=== PATIENT | female | born 1990 | race Caucasian/White ===

== ENCOUNTER 2022-04-08 10:44 | Emergency (ER) | payer MEDICAID, SELFPAY ==
[2022-04-08 10:55] VITALS: BP 118/101; PULSE 114; RESP 16; TEMP 36.9; O2SAT 97; BMI 29.6
--- NOTE | 2022-04-08 11:06 | PC.NURSE ---
BLOOD AND URINE SENT TO LAB
--- NOTE | 2022-04-08 11:09 | CT_ITS ---
PROCEDURE INFORMATION: Exam: CT Abdomen And Pelvis Without Contrast Exam date and time: 04/08/2022 11:25 AM Age: 31 years old Clinical indication: Abdominal pain; Flank; Right; Additional info: R flank pain TECHNIQUE: Imaging protocol: Computed tomography of the abdomen and pelvis without contrast. Radiation optimization: All CT scans at this facility use at least one of these dose optimization techniques: automated exposure control; mA and/or kV adjustment per patient size (includes targeted exams where dose is matched to clinical indication); or iterative reconstruction. COMPARISON: No relevant prior studies available. FINDINGS: Lungs: Calcified granuloma in the left lower lobe. Liver: No mass. Gallbladder and bile ducts: No calcified stones. No ductal dilation. Pancreas: Normal. No ductal dilation. Spleen: Punctate calcified splenic granulomata. Adrenal glands: No mass. Kidneys and ureters: No radiopaque renal calculi. No hydronephrosis. Stomach and bowel: No obstruction. Appendix: No evidence of appendicitis. Intraperitoneal space: No free air. No significant fluid collection. Vasculature: No abdominal aortic aneurysm. Lymph nodes: No enlarged lymph nodes. Urinary bladder: Unremarkable as visualized. Reproductive: IUD. Bones/joints: No acute fracture. Soft tissues: Unremarkable. IMPRESSION: No evidence of an acute intra-abdominal process.
--- NOTE | 2022-04-08 11:11 | HMH.EDGENADL ---
Discharge Plan Disposition Patient Disposition: Home, Self-Care Condition: Good Prescriptions Prescriptions: New ondansetron 4 mg tablet,disintegrating 4 mg PO Q8H PRN (Reason: nausea and vomiting) Qty: 10 0RF Referrals Follow up/Referrals: Nadine Villeda [Primary Care Provider] - See instructions Activity Restrictions/Add. Instructions Additional Instructions/Restrictions: Collect a diarrhea sample using the provided supplies and return it along with the order form to ER registration at [facility] for testing. Obtain the results of this test from your primary care provider the next day. Additional instructions for VOMITING/DIARRHEA: See your physician as soon as possible for further evaluation. Drink plenty of fluids. Return immediately if severe abdominal pain, uncontrollable vomiting, shortness of breath, fever, bloody diarrhea, vomiting of blood or abdominal distention. Urine culture has been performed, results generally take 2 to 3 days. Follow-up the results of this test with your primary care provider within 2 to 3 days. Clinical Impressions Clinical Impression: Gastroenteritis, Acute right flank pain, Rash Instructions Patient Instructions: DI for Viral Gastroenteritis -- Adult, DI for Diarrhea and Traveler's Diarrhea -- Adult, DI for Nausea -- Adult, DI for Flank Pain Discharge ED Provider: Sabas Drake General Adult HPI General Chief complaint: Nausea/Vomiting/Diarrhea Stated complaint: dizzy, vomiting, pain in Rt side Time Seen by Provider: 04/08/22 11:04 Mode of Arrival: Ambulatory Source of Information: Patient Limitations: No Limitations Description of Symptoms (Recalled from ER Triage Doc. by RN): Pt c/o N/V/D and rt flank pain that woke her up out of sleep this AM. Reports that the pain is constant, but will intermittently have a sharp shooting pain. Pt also c/o chills and an ongoing rash that she is currently being treated for. Pt afebrile upon arrival to ED History of Present Illness HPI narrative: States that she was awakened out of her sleep this morning by nausea, vomiting, diarrhea, and right flank pain. Right flank pain is spasmodic. She has had about 10 episodes of vomiting and profuse watery diarrhea without blood. No fever. No urinary symptoms. She states she has been treated for a rash on her hands and face for the past couple of weeks by her primary care provider, Nadine Villeda. She has been on 2 courses of prednisone and just recently started fluconazole as well. 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 Related Data Previous Rx's Medication Instructions Recorded ondansetron 4 mg disintegrating 4 mg PO Q8H PRN nausea and 04/08/22 tablet vomiting #10 tabs Allergies Allergy/AdvReac Type Severity Reaction Status Date / Time No Known Allergies Allergy Verified 04/08/22 11:17 [facility] Medical History (Updated 04/08/22 @ 12:18 by Sabas Drake MD) Encounter for insertion of mirena IUD Social History Smoking Status: Never smoker ROS Obtained: Yes Systems reviewed as appropriate & no additional complaints except as documented Constitutional Constitutional: Denies fever(s), Denies headache(s) and Denies weakness ENT Ears, Nose, Mouth, and Throat: Reports dry mouth, Denies headache(s), Denies nasal discharge and Denies sore throat Cardiovascular Cardiovascular: Denies chest pain Respiratory Respiratory: Denies shortness of breath and Denies cough Gastrointestinal Gastrointestingal: Reports abdominal pain, diarrhea and vomiting; Denies constipation or hematochezia Genitourinary Female Genitourinary: Denies difficulty voiding, Denies dysuria and Reports flank pain Musculoskeletal Musculoskeletal: Denies numbness Neurologic Neurologic: Denies headache(s), Denies numbness and Denies weakness Physical Exam General General appearance: alert and in no apparent distress Head Head exam: atraumatic and normocephalic Eye Eye exam: Present no
[2022-04-08 11:17] LABS: Microscopic, Urine URINE MICROSCOPIC (MICROSCOPIC)
[2022-04-08 11:18] LABS: Appearance,Urine SL CLOUDY (Clear); Bilirubin,Urine Negative (Negative); Blood, Urine TRACE-I (Negative); Color,Urine DK YELLOW (Yellow); Glucose,Urine (UA) Negative (Negative); Ketones,Urine TRACE (Negative); Leukocyte Esterase,Urine 1+ (Negative); Nitrate,Urine Negative (Negative); Protein,Urine TRACE (Negative); Specific Gravity, Urine 1.015 (1.005-1.030)
[2022-04-08 11:21] LABS: Urine Pregnancy, HCG Qual. Negative (Negative)
--- NOTE | 2022-04-08 11:28 | PC.NURSE ---
PT GOING FOR CT
[2022-04-08 11:33] LABS: Chloride 105 mmol/L (98-107); Potassium 3.9 mmoL/L (3.5-5.1); Sodium 141 mmol/L (136-145)
[2022-04-08 11:35] LABS: Alanine Aminotransferase 18 U/L (12-78); Alkaline Phosphatase 55 U/L (38-126); Anion Gap 16.9 mEq/L (5-15); Aspartate Amino Transferase 25 U/L (14-36); Bacteria,Urine 1+ /lpf; Bilirubin,Total 1.1 mg/dl (0.2-1.3); Blood Urea Nitrogen 17 mg/dl (7-17); Carbon Dioxide 23 mmol/L (22.0-30.0); Creatinine Clearance Estimated 141 mL/min (50-200); Estimated Glomerular Filt Rate 83 ml/min (>60); GFR (African American) 101 ML/MIN (>60); Lipase 31 U/L (23-300); RBC,Urine Occasional #/hpf (0-3)
[2022-04-08 11:36] LABS: Albumin Level 4.5 g/dl (3.5-5.0); Albumin/Globulin Ratio 1.7 (1.1-1.8); Calcium 8.7 mg/dl (8.4-10.2); Globulin 2.7 g/dL (1.3-3.2); Glucose 100 mg/dl (74-100); Total Protein,Serum 7.2 g/dl (6.3-8.2)
--- NOTE | 2022-04-08 11:36 | PC.NURSE ---
pt return from radiology
[2022-04-08 11:49] LABS: Basophils % 0.2 % (0.1-2.0); Eosinophils # 0.2 K/mm3 (0.0-0.4); Eosinophils % 1.5 % (0.1-12.0); Hematocrit 45.9 % (37.0-47.0); Hemoglobin 15.3 g/dL (12.2-16.2); Lymphocytes # 0.7 K/mm3 (0.7-4.5); Lymphocytes % 5.3 % (10-50); Mean Corpuscular HGB Conc 33.3 g/dL (31.8-35.4); Mean Corpuscular Hemoglobin 31.9 pg (27.0-31.2); Mean Corpuscular Volume 95.5 fl (81-99); Mean Platelet Volume 8.4 fl (7.4-10.4); Monocytes # 0.4 K/mm3 (0.1-1.0); Monocytes % 3.1 % (1.7-9.3); Neutrophils # 10.8 K/mm3 (1.8-7.8); Neutrophils % 89.9 % (37.0-80.0); Platelet Count 223 K/mm3 (142-424); Red Cell Distribution Width 12.9 % (11.5-17.5)
[2022-04-08 11:53] LABS: MANUAL DIFFERENTIAL MANUAL DIFFERENTIAL (MANUAL DIFF)
[2022-04-08 12:25] LABS: Eosinophils % 1 % (0-3); Lymphocytes % 7 % (10-50); Monocytes % 1 % (2-9); Neutrophils % 90 % (42-76); Platelet Estimate Normal; RBC Morphology Normal; Total Cells Counted 100
--- NOTE | 2022-04-08 13:11 | PC.NURSE ---
pt up to [facility]
[2022-04-08 13:22] VITALS: BP 124/79; PULSE 78; RESP 16; TEMP 36.8; O2SAT 98
== END 2022-04-08 13:22 | disposition home or self-care (01) ==
PROVIDERS: Emergency Provider Emergency Medicine; PCP Family Medicine
DX: K52.9 Noninfective gastroenteritis and colitis, unspecified (principal); R21 Rash and other nonspecific skin eruption
CPT/HCPCS: 74176; 80053; 81001; 81025; 83690; 85007; 85025; 87086; 96365; 96375; 99284; J2405

== ENCOUNTER 2022-08-14 15:30 | Emergency (ER) | payer MEDICAID, SELFPAY ==
[2022-08-14 15:45] VITALS: BP 114/70; PULSE 91; RESP 20; TEMP 36.6; O2SAT 99; BMI 28.8
--- NOTE | 2022-08-14 16:20 | EXP.UTC ---
Discharge Plan Disposition Patient Disposition: Home, Self-Care Condition: Good Prescriptions Prescriptions: New mupirocin 2 % ointment 1 applic topical TID 10 Days Qty: 22 0RF Rx Instructions: apply to lesion under ear cephalexin 500 mg capsule 500 mg PO Q8H 7 Days Qty: 21 0RF No Action citalopram 10 mg tablet 10 mg PO DAILY Label Comments: TAKE 1 TABLET BY MOUTH EVERY DAY topiramate 50 mg tablet 50 mg PO TID Label Comments: TAKE 1 TABLET BY MOUTH THREE TIMES DAILY Referrals Follow up/Referrals: Nadine Villeda [Primary Care Provider] - See instructions Activity Restrictions/Add. Instructions Additional Instructions/Restrictions: *Start antibiotic(s) immediately and be sure to take as ordered for the FULL length of time although you may be feeling better or start to see improvement in the next 24-48 hours Topical ointment to area as prescribed *Monitor closely. Outlined redness so that you can monitor easier. Follow up immediately for new or worsening symptoms including but not limited to redness, swelling, streaking from site fever or chills. *Warm compress 15 minutes 3-4 times day *Never squeeze or pop these on your own. Seek immediate medical attention next time this occurs *Monitor Temp. Tylenol every 4 hours as needed and ibuprofen every 6 hours as needed (as long as your primary care doctor has told you that it is ok to take both. For fever, aches, pain. ER if no less that 101 despite Tylenol and ibuprofen ?Follow up with your family doctor/primary care physician in the next 48-72 hours if no improvement Follow up with your Family Doctor, ENT, or Dermatology if symptoms persit Clinical Impressions Clinical Impression: Cellulitis Instructions Patient Instructions: Cellulitis, Mupirocin, Cephalexin Discharge ED Provider: Neeru Do [facility] [place] General Stated complaint: knot under right ear with pain and hot Mode of Arrival: Ambulatory Source of Information: Patient Limitations: No Limitations Time Seen by Provider: 08/14/22 16:20 Description of Symptoms (Recalled from Triage Doc. by RN): painful knot under/behing right ear HEENT Symptoms (Recalled from RN notes): Yes Resp Symptoms (Recalled from RN notes): No Skin Symptoms (Recalled from RN notes): No MS Symptoms (Recalled from RN notes): No Functional Status (Recalled from RN notes): N/A History of Present Illness Provider Complaint: Patient state that she has a spot under her right ear that is sore to the touch and hurts when she touches it States that she tried to mash it a few days ago and it has continued to get worse since and looking red and feeling warm so today she came in to get it checked Related Data Home Medications Medication Instructions Recorded Confirmed citalopram 10 mg tablet 10 mg PO DAILY . 08/14/22 08/14/22 topiramate 50 mg tablet 50 mg PO TID . 08/14/22 08/14/22 Previous Rx's Medication Instructions Recorded cephalexin 500 mg capsule 500 mg PO Q8H 7 days #21 caps 08/14/22 mupirocin 2 % topical ointment 1 applic topical TID 10 days #22 08/14/22 grams Allergies Allergy/AdvReac Type Severity Reaction Status Date / Time No Known Allergies Allergy Verified 08/14/22 15:55 Worker's Comp Is this a Worker's Comp case?: No [facility] Disclaimer: The information contained in this section may have been updated after the patient was seen, as this information can be updated by other users. Medical History (Updated 08/14/22 @ 16:34 by Neeru Do APRN) Encounter for insertion of mirena IUD Social History Smoking Status: Never smoker alcohol intake: never current occupational status: employed Travel in the last 8 weeks: None ROS Obtained: Yes All systems reviewed & no additional complaints except as documented and Yes Systems reviewed as appropriate & no additional complaints except as documented Constitutional Constitutional: Reports system reviewed and no
[2022-08-14 16:50] VITALS: BP 114/70; PULSE 91; RESP 20; TEMP 36.8; O2SAT 99
== END 2022-08-14 16:49 | disposition home or self-care (01) ==
PROVIDERS: Emergency Provider Nurse Practitioner; PCP Family Medicine
DX: L03.221 Cellulitis of neck (principal)
CPT/HCPCS: 99212; 99214; G0463

== ENCOUNTER 2022-10-29 11:38 | Emergency (ER) | payer MEDICAID, SELFPAY ==
[2022-10-29 12:00] VITALS: BP 141/79; PULSE 79; RESP 18; TEMP 36.9; O2SAT 98; BMI 27.3
--- NOTE | 2022-10-29 12:19 | EXP.UTC ---
Discharge Plan Disposition Patient Disposition: Home, Self-Care Condition: Good Prescriptions Prescriptions: New fluconazole [Diflucan] 150 mg tablet 150 mg PO Q3D Qty: 2 0RF Rx Instructions: Take one tablet now and may repeat in 3 days (72hrs) if still having symptoms No Action citalopram 10 mg tablet 10 mg PO DAILY Label Comments: TAKE 1 TABLET BY MOUTH EVERY DAY topiramate 50 mg tablet 50 mg PO TID Label Comments: TAKE 1 TABLET BY MOUTH THREE TIMES DAILY cetirizine 10 mg tablet 10 mg PO DAILY Label Comments: TAKE 1 TABLET BY MOUTH TWICE DAILY Referrals Follow up/Referrals: Nadine Villeda [Primary Care Provider] - See instructions Activity Restrictions/Add. Instructions Additional Instructions/Restrictions: Take medication as prescribed Follow up with your OBGYN if no improvment or any worsening of symptoms Return if needed Straight to ER if any life threatening symptoms Clinical Impressions Clinical Impression: Vaginal yeast infection Instructions Patient Instructions: DI for Vaginal Yeast Infection, Vaginal Yeast Infection Discharge ED Provider: Neeru Do [facility] General Stated complaint: Possible yeast infection Mode of Arrival: Ambulatory Source of Information: Patient Limitations: No Limitations Time Seen by Provider: 10/29/22 12:19 Description of Symptoms (Recalled from Triage Doc. by RN): PATIENT C/O PAIN, REDNESS, ITCHING AND SWELLING TO GENITAL AREA X 3 DAYS HEENT Symptoms (Recalled from RN notes): No Resp Symptoms (Recalled from RN notes): No Skin Symptoms (Recalled from RN notes): Yes MS Symptoms (Recalled from RN notes): No Functional Status (Recalled from RN notes): WNL History of Present Illness Provider Complaint: Patient states that she thinks she may have a yeast infection States that she has been having itching, burning and mild swelling in her genital area States that sometimes she will burn after she urinates and has been having some discharge and today it was whitish in color and thick not sure if it may be from a suppository she used last night or not Denies odor Related Data Home Medications Medication Instructions Recorded Confirmed citalopram 10 mg tablet 10 mg PO DAILY . 08/14/22 10/29/22 topiramate 50 mg tablet 50 mg PO TID . 08/14/22 10/29/22 cetirizine 10 mg tablet 10 mg PO DAILY Allergy symptoms 10/29/22 10/29/22 Previous Rx's Medication Instructions Recorded fluconazole 150 mg tablet 150 mg PO Q3D 2 doses #2 tabs 10/29/22 (Diflucan) Allergies Allergy/AdvReac Type Severity Reaction Status Date / Time No Known Allergies Allergy Verified 08/14/22 15:55 Worker's Comp Is this a Worker's Comp case?: No [facility] Disclaimer: The information contained in this section may have been updated after the patient was seen, as this information can be updated by other users. Medical History (Updated 10/29/22 @ 12:31 by Neeru Do APRN) Anxiety Depression Encounter for insertion of mirena IUD Migraines Social History (Updated 08/14/22 @ 16:34 by Neeru Do APRN) Smoking Status: Never smoker alcohol intake: never current occupational status: employed Travel in the last 8 weeks: None ROS Obtained: Yes All systems reviewed & no additional complaints except as documented and Yes Systems reviewed as appropriate & no additional complaints except as documented Constitutional Constitutional: Reports system reviewed and no additional complaints, except as documented and Reports as per HPI ENT Ears, Nose, Mouth, and Throat: Reports system reviewed and no additional complaints, except as documented and Reports as per HPI Cardiovascular Cardiovascular: Reports system reviewed and no additional complaints, except as documented and Reports as per HPI Respiratory Respiratory: Reports system reviewed and no additional complaints, except as documented and Reports as per HPI Gastrointestinal Gastr
[2022-10-29 12:27] VITALS: BP 141/79; PULSE 79; RESP 18; TEMP 36.9; O2SAT 98
[2022-10-30 22:28] LABS: Neisseria gonorrhoeae, NAA Negative (Negative)
== END 2022-10-29 12:30 | disposition home or self-care (01) ==
PROVIDERS: Emergency Provider Nurse Practitioner; PCP Family Medicine
DX: B37.31 Acute candidiasis of vulva and vagina (principal); F41.9 Anxiety disorder, unspecified; F32.9 Major depressive disorder, single episode, unspecified
CPT/HCPCS: 87491; 87591; 99212; 99214; G0463

== ENCOUNTER → 2023-04-03 09:26 | Outpatient (CLI) | payer MEDICAID, SELFPAY | PROVIDERS: PCP Nurse Practitioner Family; Visit Provider Nurse Practitioner Family | DX: R10.9 Unspecified abdominal pain (principal) | CPT/HCPCS: 87086 ==

== ENCOUNTER 2023-04-03 11:34 | Emergency (ER) | payer MEDICAID, SELFPAY ==
[2023-04-03 11:36] VITALS: BP 117/71; PULSE 88; RESP 18; TEMP 36.7; O2SAT 100; BMI 27.0
[2023-04-03 12:04] LABS: Microscopic, Urine URINE MICROSCOPIC (MICROSCOPIC)
--- NOTE | 2023-04-03 12:04 | US_ITS ---
PROCEDURE INFORMATION: Exam: US Duplex Artery and Vein of the Abdominal and/or Reproductive Organs. Complete Ovaries Exam date and time: 04/03/2023 12:33 PM Clinical indication: Pelvic pain; Additional info: Acute left pelvic pain, vomiting TECHNIQUE: Imaging protocol: Real-time duplex ultrasound scan of the arterial and venous flow with color Doppler flow and spectral waveform analysis with image documentation. Complete duplex exam focused on the ovaries. Duplex exam was performed to evaluate for torsion and other vascular conditions. COMPARISON: No relevant prior studies available. FINDINGS: Right ovary/adnexa: Right ovary is normal in size and echotexture. Color and spectral Doppler demonstrates normal ovarian arterial and venous blood flow. Left ovary/adnexa: Left ovary is normal in size and echotexture. Color and spectral Doppler demonstrates normal ovarian arterial and venous blood flow. IMPRESSION: No evidence of ovarian torsion. PROCEDURE INFORMATION: Exam: US Pelvis, Transvaginal Exam date and time: 04/03/2023 12:33 PM Age: 32 years old Clinical indication: Pelvic pain; Additional info: Acute left pelvic pain, vomiting TECHNIQUE: Imaging protocol: Real-time transvaginal pelvic ultrasound with image documentation. Transvaginal imaging was used for better evaluation of the endometrium, adnexa, and/or cervix. COMPARISON: CT ABDOMEN PELVIS WO CON 04/08/2022 11:25 AM FINDINGS: Uterus: Uterus measures 8.97 cm x 4.27 cm x 3.11 cm. Uterus is normal in size and echotexture for age. Endometrial stripe is within normal limits for age. Intrauterine device in place and appears appropriately positioned. Right ovary/adnexa: Right ovary measures 4.66 cm x 2.72 cm x 1.9 cm. Right ovarian volume is 12.61 mL. Right ovary is normal in size and echotexture and contains a physiologic corpus luteum. Color and spectral Doppler demonstrates normal ovarian arterial and venous blood flow. Left ovary/adnexa: Left ovary measures 3.95 cm x 2.81 cm x 1.9 cm. Left ovarian volume is 11.04 mL. Left ovary is normal in size and echotexture and contains a dominant physiologic follicle measuring 3 cm in maximal dimension. Color and spectral Doppler demonstrates normal ovarian arterial and venous blood flow. Intraperitoneal space: Trace amount of simple, anechoic free fluid in the pelvic cul-de-sac, likely physiologic. IMPRESSION: Normal pelvic ultrasound.
--- NOTE | 2023-04-03 12:06 | HMH.EDGENADL ---
Discharge Plan Disposition Patient Disposition: Home, Self-Care Prescriptions Prescriptions: New ondansetron HCl 4 mg tablet 4 mg PO Q8H PRN (Reason: nausea and vomiting) 5 Days Qty: 30 0RF No Action ondansetron 4 mg tablet,disintegrating 4 mg PO Q8H PRN (Reason: nausea and vomiting) Qty: 10 0RF citalopram 10 mg tablet 10 mg PO DAILY Patient Comments: TAKE 1 TABLET BY MOUTH EVERY DAY topiramate 50 mg tablet 50 mg PO TID Patient Comments: TAKE 1 TABLET BY MOUTH THREE TIMES DAILY cetirizine 10 mg tablet 10 mg PO DAILY Patient Comments: TAKE 1 TABLET BY MOUTH TWICE DAILY Referrals Follow up/Referrals: Nadine Villeda [Primary Care Provider] - See instructions Activity Restrictions/Add. Instructions Additional Instructions/Restrictions: Please follow-up with your primary care provider. Please take Zofran as needed for nausea and vomiting. Please take Tylenol and ibuprofen as needed for pain. Please return to the emergency department if you develop any new or worsening symptoms or become concerned for your health. Clinical Impressions Clinical Impression: Ovarian cyst rupture Instructions Patient Instructions: DI for Acute Abdominal Pain Discharge ED Provider: Brayan Wei General Adult HPI General Chief complaint: Abdominal Pain Stated complaint: VOMITING, LT ABDOMINAL PAIN Time Seen by Provider: 04/03/23 11:40 Mode of Arrival: Ambulatory Source of Information: Patient Limitations: No Limitations Description of Symptoms (Recalled from ER Triage Doc. by RN): Pt reports LLQ abd pain and nausea that began this morning. Pt reports multiple episodes of vomiting that began this morning after pain. History of Present Illness HPI narrative: 32-year-old female, reportedly previously healthy presents with sudden onset left lower quadrant pain, radiating across the abdomen to the right side, starting last night. Is was associated with nausea and vomiting. She initially presented to PCP, but was directed to the ER for further evaluation. She reports that she has not had pain like this in the past. She reports that she is not concerned she is because she has an IUD and her partner has a vasectomy. She denies any concern for STDs. She denies any vaginal bleeding or discharge. Reports no urinary symptoms, no history of renal lithiasis. Related Data Home Medications Medication Instructions Recorded Confirmed citalopram 10 mg tablet 10 mg PO DAILY . 08/14/22 04/03/23 topiramate 50 mg tablet 50 mg PO TID . 08/14/22 04/03/23 cetirizine 10 mg tablet 10 mg PO DAILY Allergy symptoms 10/29/22 04/03/23 Previous Rx's Medication Instructions Recorded ondansetron 4 mg disintegrating 4 mg PO Q8H PRN nausea and 04/03/23 tablet vomiting #10 tabs ondansetron HCl 4 mg tablet 4 mg PO Q8H PRN nausea and 04/03/23 vomiting 5 days #30 tabs Allergies Allergy/AdvReac Type Severity Reaction Status Date / Time No Known Allergies Allergy Verified 04/03/23 10:50 [facility] Disclaimer: The information contained in this section may have been updated after the patient was seen, as this information can be updated by other users. Medical History (Updated 04/03/23 @ 13:38 by Brayan Wei MD) Acute right flank pain Anxiety Cellulitis Depression Encounter for insertion of mirena IUD Gastroenteritis Migraines Rash Vaginal yeast infection Surgical History (Updated 04/03/23 @ 10:51 by Loraine Beckford) No significant past surgical history Family History (Updated 04/03/23 @ 10:51 by Loraine Beckford) Other No significant family history Social History (Updated 08/14/22 @ 16:34 by Neeru Do APRN) Smoking Status: Never smoker alcohol intake: never current occupational status: employed Travel in the last 8 weeks: None ROS Obtained: Yes All systems reviewed & no additional complaints except as documented Physical Exam General Gene
[2023-04-03 12:12] LABS: Basophils % 0.2 % (0.1-2.0); Eosinophils # 0.1 K/mm3 (0.0-0.4); Eosinophils % 0.9 % (0.1-12.0); Hematocrit 43.9 % (37.0-47.0); Hemoglobin 15.4 g/dL (12.2-16.2); Lymphocytes # 0.5 K/mm3 (0.7-4.5); Lymphocytes % 4.9 % (10-50); Mean Corpuscular HGB Conc 35.2 g/dL (31.8-35.4); Mean Corpuscular Hemoglobin 33.8 pg (27.0-31.2); Mean Platelet Volume 8.4 fl (7.4-10.4); Monocytes # 0.3 K/mm3 (0.1-1.0); Monocytes % 2.6 % (1.7-9.3); Neutrophils # 9.6 K/mm3 (1.8-7.8); Neutrophils % 91.4 % (37.0-80.0); Platelet Count 215 K/mm3 (142-424); Red Blood Count 4.57 M/mm3 (4.20-5.40); Red Cell Distribution Width 13.2 % (11.5-17.5); White Blood Count 10.4 K/mm3 (4.8-10.8)
[2023-04-03 12:14] LABS: Appearance,Urine CLEAR (Clear); Bilirubin,Urine Negative (Negative); Blood, Urine Negative (Negative); Color,Urine YELLOW (Yellow); Glucose,Urine (UA) Negative (Negative); Ketones,Urine TRACE (Negative); Leukocyte Esterase,Urine Negative (Negative); Nitrate,Urine Negative (Negative); PH,Urine 5.5 (5.0-8.5); Protein,Urine Negative (Negative); Specific Gravity, Urine >= 1.030 (1.005-1.030); Urobilinogen,Urine 0.2 EU/dl (0.2)
[2023-04-03 12:15] LABS: MANUAL DIFFERENTIAL MANUAL DIFFERENTIAL (MANUAL DIFF)
[2023-04-03 12:17] LABS: Alanine Aminotransferase 22 U/L (12-78); Albumin Level 4.8 g/dl (3.5-5.0); Albumin/Globulin Ratio 1.5 (1.1-1.8); Alkaline Phosphatase 53 U/L (38-126); Anion Gap 16.1 mEq/L (5-15); Aspartate Amino Transferase 30 U/L (14-36); Blood Urea Nitrogen 15 mg/dl (7-17); Calcium 8.7 mg/dl (8.4-10.2); Carbon Dioxide 18 mmol/L (22.0-30.0); Chloride 109 mmol/L (98-107); Creatinine Clearance Estimated 127 mL/min (50-200); Estimated Glomerular Filt Rate 83 ml/min (>60); GFR (African American) 100 ML/MIN (>60); Globulin 3.1 g/dL (1.3-3.2); Glucose 93 mg/dl (74-100); Lipase 58 U/L (23-300); Potassium 4.1 mmoL/L (3.5-5.1); Sodium 139 mmol/L (136-145); Total Protein,Serum 7.9 g/dl (6.3-8.2)
[2023-04-03 12:18] LABS: Urine Pregnancy, HCG Qual. Negative (Negative)
--- NOTE | 2023-04-03 12:32 | PC.NURSE ---
pt to u/s via wheelchair
[2023-04-03 12:47] LABS: Eosinophils % 2 % (0-3); Lymphocytes % 5 % (10-50); Monocytes % 1 % (2-9); Neutrophils % 92 % (42-76); Platelet Estimate Normal; RBC Morphology Normal; Total Cells Counted 100
--- NOTE | 2023-04-03 13:01 | PC.NURSE ---
pt return from u/s, rad staff giving verbal report to ZAKI zarate
[2023-04-03 13:54] VITALS: BP 109/63; PULSE 72; RESP 20; TEMP 36.7; O2SAT 98
== END 2023-04-03 13:55 | disposition home or self-care (01) ==
PROVIDERS: Emergency Provider Emergency Medicine; PCP Family Medicine
DX: N83.209 Unspecified ovarian cyst, unspecified side (principal); R10.0 Acute abdomen
CPT/HCPCS: 76830; 80053; 81001; 81025; 83690; 85007; 85025; 96374; 96375; 99285; J0131; J2405

== ENCOUNTER 2023-08-03 09:51 | Emergency (ER) | payer MEDICAID, SELFPAY ==
[2023-08-03 10:00] VITALS: BP 94/64; PULSE 72; RESP 18; TEMP 36.5; O2SAT 99; BMI 27.7
[2023-08-03 10:37] LABS: UTC Influenza A Antigen Negative (Negative); UTC Influenza B Antigen Negative (Negative); UTC Strep Screen (Rapid) Negative (Negative)
[2023-08-03 10:38] VITALS: BP 94/64; PULSE 72; RESP 18; TEMP 36.5; O2SAT 99
--- NOTE | 2023-08-03 10:53 | ED_ITS ---
Discharge Plan Disposition Patient Disposition: Home, Self-Care Condition: Good Prescriptions Prescriptions: New fluticasone propionate [fluticasone propionate] 50 mcg/actuation spray,suspension 1 spray intranasal DAILY Qty: 9.9 0RF amoxicillin [amoxicillin] 500 mg tablet 500 mg PO BID 10 Days Qty: 20 0RF No Action citalopram 40 mg tablet 40 mg PO DAILY Patient Comments: TAKE 1 TABLET BY MOUTH EVERY DAY Mirena 21 mcg/24 hours (8 yrs) 52 mg intrauterine device 1 device intrauterine ONCE topiramate 50 mg tablet 50 mg PO TID Patient Comments: TAKE 1 TABLET BY MOUTH THREE TIMES DAILY citalopram 10 mg tablet 40 mg PO DAILY Patient Comments: TAKE 1 TABLET BY MOUTH EVERY DAY cetirizine 10 mg tablet 10 mg PO DAILY Patient Comments: TAKE 1 TABLET BY MOUTH TWICE DAILY Referrals Follow up/Referrals: Nadine Villeda [Primary Care Provider] - See instructions Activity Restrictions/Add. Instructions Additional Instructions/Restrictions: Start antibiotic patient to take as ordered for a full length of time even if you feel better. Sinus infections do not get better overnight. It may take 2-3 days to notice much improvement so be sure to use conservative measures as discussed for symptoms. Flonase 1 spray each nostril daily to help with nasal congestion, sinus and ear pressure/information Increase fluids Humidifier/vaporizer as needed Tylenol and ibuprofen as needed for fever or pain. If symptoms do not improve or get worse return or be seen in the ER Follow-up with primary care this week Clinical Impressions Clinical Impression: Acute maxillary sinusitis Qualifiers: Recurrence: non-recurrent Qualified Code(s): J01.00 - Acute maxillary sinusitis, unspecified Instructions Patient Instructions: DI for Sinusitis Discharge ED Provider: Nicolasa ([facility] [place] HPI General Stated complaint: sore throat, congestion Mode of Arrival: Ambulatory Source of Information: Patient Limitations: No Limitations Time Seen by Provider: 08/03/23 10:53 Description of Symptoms (Recalled from Triage Doc. by RN): Pt's symptoms are sore throat, ROSALES, and sinus pressure. At home covid test was negative HEENT Symptoms (Recalled from RN notes): Yes Resp Symptoms (Recalled from RN notes): No Skin Symptoms (Recalled from RN notes): No MS Symptoms (Recalled from RN notes): No Functional Status (Recalled from RN notes): n/a History of Present Illness Provider Complaint: 33 yr old female presents for sore throat, ROSALES, and sinus pressure. At home covid test was negative Related Data Home Medications Medication Instructions Recorded Confirmed topiramate 50 mg tablet 50 mg PO TID . 08/14/22 08/03/23 cetirizine 10 mg tablet 10 mg PO DAILY Allergy symptoms 10/29/22 08/03/23 citalopram 10 mg tablet 40 mg PO DAILY . 06/17/23 08/03/23 citalopram 40 mg tablet 40 mg PO DAILY 06/17/23 08/03/23 levonorgestrel 21 mcg/24 hours (8 1 device intrauterine ONCE 06/17/23 08/03/23 yrs) 52 mg intrauterine device (Mirena) Previous Rx's Medication Instructions Recorded amoxicillin 500 mg tablet 500 mg PO BID 10 days #20 tabs 08/03/23 fluticasone propionate 50 1 spray intranasal DAILY #9.9 mL 08/03/23 mcg/actuation nasal spray,suspension Allergies Allergy/AdvReac Type Severity Reaction Status Date / Time No Known Allergies Allergy Verified 08/03/23 10:13 Worker's Comp Is this a Worker's Comp case?: No [facility] Disclaimer: The information contained in this section may have been updated after the patient was seen, as this information can be updated by other users. Medical History , [employer]IST) Acute right flank pain Anxiety Cellulitis Depression Encounter for insertion of mirena IUD Gastroenteritis Migraines Rash Vaginal yeast infection Surgical History , [employer]OR RECREATION SPECIALIST) No significant past surgical history Family History , OUT[employer]OR RECREATION SPECIALIST) Substance abuse Alcoholism Anemia FHx: mental illness Cancer Asthma Social History , [employer] RECREATION SPECIALIST) Smoking Status: Former smoker alcohol intake: never current occupational status: employed Travel in the last 8 weeks: None ROS Obtained: Yes All systems reviewed & no additional complaints except as documented Constitutional Constitutional: Reports system reviewed and no additional complaints, except as documented, Reports as per HPI and Reports headache(s) Eyes Eyes: Reports system reviewed and no additional complaints, except as documented ENT Ears, Nose, Mouth, and Throat: Reports system reviewed and no additional complaints, except as documented, Reports as per HPI, Reports headache(s), Reports nasal congestion and Reports sore throat Cardiovascular Cardiovascular: Reports system reviewed and no additional complaints, except as documented Respiratory Respiratory: Reports system reviewed and no additional complaints, except as documented Neurologic Neurologic: Reports system reviewed and no additional complaints, except as documented and Reports headache(s) Endocrine Endocrine: Reports system reviewed and no additional complaints, except as documented Allergic/Immunologic Allergic/Immunologic: Reports system reviewed and no additional complaints, except as documented Physical Exam General General appearance: alert and in no apparent distress Eye Eye exam: Present normal appearance and PERRL ENT ENT exam: Present mucous membranes moist and TM's normal bilaterally Expanded ENT Exam Nose exam: Present sinus tenderness Throat exam: Present tonsillar erythema, tonsillomegaly and tonsillar exudate Respiratory Respiratory exam: Present normal lung sounds bilaterally Cardiovascular Cardiovascular exam: Present regular rate and normal rhythm Neurological Exam Neurological exam: Present alert and oriented X3 Skin Skin exam: Present warm Medical Decision Making Medical Records Medical records reviewed: Yes I reviewed the patient's medical records. Rubén Inquiry Pt receiving controlled substance: No Rubén was queried for this patient: No Vital Signs: 08/03/23 10:00 08/03/23 10:38 Temperature 97.7 F 97.7 F Temperature Source Oral Pulse Rate 72 Pulse Rate [Right Radial] 72 Respiratory Rate 18 18 Blood Pressure 94/64 L Blood Pressure [Right Arm] 94/64 L Blood Pressure Mean [Right Arm] 74 Blood Pressure Source [Right Arm] Automatic Cuff Blood Pressure Position [Right Arm] Sitting 02 Sat by Pulse Oximetry 99 Oxygen Delivery Method Room Air Lab Data Lab results reviewed: Yes I reviewed the patient's lab results. Lab Results 08/03/23 10:16: Influenza Type A Ag Negative, Influenza Type B Ag Negative, Strep Scn Rapid Clinic Negative Orders (Tests/Meds): ORDERS Category Date Time Status Strep Screen Confirmation Stat Micro 08/03/23 10:16 Received
== END 2023-08-03 11:15 | disposition home or self-care (01) ==
PROVIDERS: Emergency Provider Nurse Practitioner Family; PCP Family Medicine
DX: J01.00 Acute maxillary sinusitis, unspecified (principal); R07.0 Pain in throat; R51.9 Headache, unspecified; R09.81 Nasal congestion; Z87.891 Personal history of nicotine dependence
CPT/HCPCS: 87804; 87880; 99212; 99214; G0463

== ENCOUNTER 2023-12-28 09:53 | Emergency (ER) | payer MEDICAID, SELFPAY ==
[2023-12-28 09:59] VITALS: BP 104/72; PULSE 79; O2SAT 96
[2023-12-28 10:10] VITALS: BP 104/72; PULSE 90; RESP 16; TEMP 36.7; O2SAT 96; BMI 25.0
--- NOTE | 2023-12-28 10:13 | ED_ITS ---
Discharge Plan Disposition Patient Disposition: Home, Self-Care Condition: Good Prescriptions Prescriptions: New promethazine 25 mg tablet 25 mg PO Q6H PRN (Reason: nausea and vomiting) Qty: 12 1RF Discontinued ondansetron 4 mg tablet,disintegrating 4 mg PO Q6H Qty: 30 0RF No Action citalopram 40 mg tablet 40 mg PO DAILY Patient Comments: TAKE 1 TABLET BY MOUTH EVERY DAY Mirena 21 mcg/24 hours (8 yrs) 52 mg intrauterine device 1 device intrauterine ONCE topiramate 50 mg tablet 50 mg PO TID Patient Comments: TAKE 1 TABLET BY MOUTH THREE TIMES DAILY citalopram 10 mg tablet 40 mg PO DAILY Patient Comments: TAKE 1 TABLET BY MOUTH EVERY DAY fluticasone propionate [fluticasone propionate] 50 mcg/actuation spray,suspension 1 spray intranasal DAILY Qty: 9.9 0RF amoxicillin [amoxicillin] 500 mg tablet 500 mg PO BID 10 Days Qty: 20 0RF cetirizine 10 mg tablet 10 mg PO DAILY Patient Comments: TAKE 1 TABLET BY MOUTH TWICE DAILY Referrals Follow up/Referrals: Andrea García MD [Physician] - See instructions Nadine Almazan MD [Primary Care Provider] - See instructions Carlos Almaguer MD [Staff Physician] - See instructions Mariah García APRN [Staff Physician] - See instructions Guillermo Yu MD [Staff Physician] - See instructions Activity Restrictions/Add. Instructions Additional Instructions/Restrictions: You were evaluated in the emergency department today. 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 Eat a bland diet until your symptoms resolve. Follow-up closely with your primary care provider. Return to the emergency department for new or worsening symptoms. For your ongoing abdominal issues, I have also provided you with information with both GI and general surgery. Please call their offices to arrange appointments for further workup. We hope you feel better! Clinical Impressions Clinical Impression: Nausea & vomiting, Headache Stand Alone Forms Stand Alone Forms: Work/School Release Instructions Patient Instructions: DI for Nausea -- Adult, DI for Headache Discharge ED Provider: Nini Fuentes General Adult HPI General Chief complaint: Abdominal Pain Stated complaint: vomiting, abd pain, headache Time Seen by Provider: 12/28/23 09:57 History of Present Illness HPI narrative: This patient is a 33-year-old female who denies significant past medical history presenting to the emergency department for evaluation with concern for intractable nausea and vomiting that started this morning. She also states that she has had a headache that started after vomiting. She has had some abdominal pain and cramping with vomiting, but no pain at rest. She denies any other symptoms, such as other neurologic symptoms, changes in bowel movements, or other issues. She states she has had some digestive issues over the last month with poor oral intake and loose stools. She has not seen anyone for this previously. No other concerns noted at this time. Related Data Home Medications Medication Instructions Recorded Confirmed topiramate 50 mg tablet 50 mg PO TID . 08/14/22 08/03/23 cetirizine 10 mg tablet 10 mg PO DAILY Allergy symptoms 10/29/22 08/03/23 citalopram 10 mg tablet 40 mg PO DAILY . 06/17/23 08/03/23 citalopram 40 mg tablet 40 mg PO DAILY 06/17/23 08/03/23 levonorgestrel 21 mcg/24 hr (up to 1 device intrauterine ONCE 06/17/23 08/03/23 8 years) 52 mg intrauterine device (Mirena) Previous Rx's Medication Instructions Recorded amoxicillin 500 mg tablet 500 mg PO BID 10 days #20 tabs 08/03/23 fluticasone propionate 50 1 spray intranasal DAILY #9.9 mL 08/03/23 mcg/actuation nasal spray,suspension promethazine 25 mg tablet 25 mg PO Q6H PRN nausea and 12/28/23 vomiting #12 tabs Allergies Allergy/AdvReac Type Severity Reaction Status Date / Time No Known Allergies Allergy Verified 12/28/23 10:18 [facility] Disclaimer: The information contained in this section may have been updated after the patient was seen, as this information can be updated by other users. Medical History Vaginal yeast infection Depression Anxiety Migraines Cellulitis Rash Acute right flank pain Gastroenteritis Encounter for insertion of mirena IUD Surgical History No significant past surgical history Family History Other Alcoholism Anemia Asthma Cancer FHx: mental illness Substance abuse Social History (Reviewed 12/28/23 @ 10:14 by BUSTER Clark Smoking Status: Current every day smoker alcohol intake: never current occupational status: employed Travel in the last 8 weeks: None ROS Obtained: Yes All systems reviewed & no additional complaints except as documented Physical Exam General General appearance: alert and in no apparent distress Head Head exam: atraumatic and normocephalic Eye Eye exam: Present normal appearance, PERRL and EOMI ENT ENT exam: Present normal exam, normal oropharynx, mucous membranes moist and normal external ear exam Neck Neck exam: Present normal inspection, full ROM and trachea midline; Absent tenderness Chest Chest inspection: Present normal inspection and symmetric chest wall rise; Absent tenderness Respiratory Respiratory exam: Present normal lung sounds bilaterally; Absent respiratory distress, wheezes, stridor or accessory muscle use Cardiovascular Cardiovascular exam: Present regular rate and normal rhythm Abdominal Exam Abdominal exam: Present soft; Absent distention, tenderness or guarding Extremities Exam Extremities exam: Present normal inspection, full ROM and normal capillary refill; Absent tenderness or edema Back Exam Back exam: Present normal inspection and full ROM; Absent tenderness Neurological Exam Neurological exam: Present alert, oriented X3, CN II-XII intact and normal gait; Absent motor sensory deficit Psychiatric Psychiatric exam: Present normal affect and normal mood Skin Skin exam: Present warm and dry Medical Decision Making Medical Records Medical records reviewed: Yes I reviewed the patient's medical records. Rubén Inquiry Pt receiving controlled substance: No Vital Signs: 12/28/23 09:59 12/28/23 10:10 12/28/23 11:20 Temperature 98.1 F Temperature Source Oral Pulse Rate 79 64 Pulse Rate [Left] 90 Respiratory Rate 16 Blood Pressure 104/72 L 91/60 L Blood Pressure [Right Arm] 104/72 L Blood Pressure Mean [Right Arm] 82 Blood Pressure Source [Right Arm] Automatic Cuff Blood Pressure Position [Right Arm] Sitting 02 Sat by Pulse Oximetry 96 96 99 Oxygen Delivery Method Room Air Room Air 12/28/23 13:38 Temperature 98 F Temperature Source Pulse Rate 67 Pulse Rate [Left] Respiratory Rate 14 Blood Pressure 91/57 L Blood Pressure [Right Arm] Blood Pressure Mean [Right Arm] Blood Pressure Source [Right Arm] Blood Pressure Position [Right Arm] 02 Sat by Pulse Oximetry Oxygen Delivery Method Lab Data Lab results reviewed: Yes I reviewed the patient's lab results. Lab Results 12/28/23 10:07: WBC 6.9, RBC 4.51, Hgb 14.7, Hct 43.2, MCV 95.8, MCH 32.6 H, MCHC 34.0, RDW 13.5, Plt Count 238, MPV 8.5, Neut % (Auto) 65.7, Lymph % (Auto) 25.8, [place] % (Auto) 4.2, Eos % (Auto) 3.5, Baso % (Auto) 0.9, Neut # (Auto) 4.6, Lymph # (Auto) 1.8, [place] # (Auto) 0.3, Eos # (Auto) 0.2, Baso # (Auto) 0.1, Sodium 143, Potassium 4.2, Chloride 116 H, Carbon Dioxide 19 L, Anion Gap 12.2, BUN 11, Creatinine 0.70, Estimated Creat Clear 134, Estimated GFR 96, Est GFR ( Amer) 116, Glucose 90, Calcium 9.1, Total Bilirubin 0.5, AST 21, ALT 16, Alkaline Phosphatase 38, Total Protein 7.3, Albumin 4.4, Globulin 2.9, Albumin/Globulin Ratio 1.5, Lipase 48, Serum HCG, Qual Negative 12/28/23 12:30: Urine Color Yellow, Urine Appearance Cloudy, Urine pH 8.5, Ur Specific [place] 1.015, Urine Protein Negative, Urine Glucose (UA) Negative, Urine Ketones Negative, Urine Blood Negative, Urine Nitrate Negative, Urine Bilirubin Negative, Urine Urobilinogen 0.2, Ur Leukocyte Esterase Negative, Urine RBC None, Urine WBC None, Ur Squamous Epith Cells 5-10, Amorphous Sediment 1+, Urine Bacteria Trace 12/28/23 10:07 12/28/23 10:07 Orders (Tests/Meds): ED MEDICATIONS Discontinued Medications Generic Name Dose Route Start Last Admin Trade Name Freq PRN Reason Stop Dose Admin Acetaminophen 1,000 mg 12/28/23 10:11 12/28/23 10:23 Acetaminophen 1,000mg/100ml Vial IV 12/28/23 10:12 1,000 mg ONCE ONE Administration Famotidine 20 mg 12/28/23 12:48 12/28/23 12:53 Famotidine 20mg/2ml Vial IV 12/28/23 12:49 20 mg ONCE ONE Administration Lactated Ringer's 1,000 mls @ 999 mls/hr 12/28/23 10:11 12/28/23 10:21 Lactated Ringer's 1000 Ml Bag IV 12/28/23 11:11 999 mls/hr .Q1H1M ONE Administration Ketorolac Tromethamine 15 mg 12/28/23 10:11 12/28/23 10:23 Ketorolac 30mg/Ml Vial IV 12/28/23 10:12 15 mg ONCE ONE Administration Ondansetron HCl 4 mg 12/28/23 10:11 12/28/23 10:22 Ondansetron 4mg/2ml Vial IV 12/28/23 10:12 4 mg ONCE ONE Administration Promethazine HCl 25 mg 12/28/23 12:48 12/28/23 12:53 Promethazine Hcl 25mg/Ml 1ml Vial IV 12/28/23 12:49 25 mg ONCE ONE Administration Sodium Chloride 25 ml 12/28/23 12:48 12/28/23 12:53 Sodium Chloride 0.9% 25ml Bag IV 12/28/23 12:49 25 ml ONCE ONE Administration Sodium Chloride 8 ml 12/28/23 12:48 Sodium Chloride 0.9% 10ml Vial IV 01/27/24 12:47 NEEDED PRN dilute pepcid ORDERS Category Date Time Status Complete Blood Count Auto Diff Stat Lab 12/28/23 10:07 Completed Comprehensive Metabolic Panel Stat Lab 12/28/23 10:07 Completed Lipase Stat Lab 12/28/23 10:07 Completed Serum [HCG Qualitative, Serum] Stat Lab 12/28/23 10:07 Completed UA [Urinalysis and Microscopic] Stat Lab 12/28/23 12:30 Completed Medical Decision Narrative: In summary, this patient is a 33-year-old female presenting to the Emergency Department for evaluation of nausea and vomiting as well as headache. Differential diagnoses considered include but are not limited to viral syndrome, bacterial gastroenteritis, dehydration, electrolyte derangements, appendicitis, cholecystitis, migraine. Ruling out the most morbid conditions drove assessment. On exam, the patient is well-appearing and is neurologically intact. Abdominal exam is benign with no focal pain to suggest acute surgical intra-abdominal pathology. Workup included CBC, CMP, lipase, urinalysis, test. She was given a bolus of IV fluids as well as IV Toradol, acetaminophen, and Zofran to assess for symptomatic improvement. On reassessment, the patient is resting comfortably with significantly improved symptoms. She remains neurologically intact and states that she is feeling a lot better. Labs are reassuring with no acutely concerning abnormalities. No significant leukocytosis, transaminitis, or other concerns. Abdominal exam remains benign. She does not complain of any abdominal pain. After attempted p.o. challenge, the patient did have recurrence of nausea, so she was given IV Phenergan. She states that this did help her symptoms and after was deemed to be appropriate for discharge home with prescription for Phenergan and instructions for supportive management of likely viral enteritis. She was given instructions for close follow-up with her primary care provider. For her month- long GI symptoms, I did give her information for gastroenterology as well as general surgery should she wish to look into further testing, such as endoscopy as deemed appropriate. Strict return precautions were given, and the patient was discharged after all questions were answered. Critical Care Critical Care Time Critical Care Time: No
[2023-12-28 10:18] LABS: Basophils # 0.1 K/mm3 (0-0.2); Basophils % 0.9 % (0.1-2.0); Eosinophils # 0.2 K/mm3 (0.0-0.4); Eosinophils % 3.5 % (0.1-12.0); Hematocrit 43.2 % (37.0-47.0); Hemoglobin 14.7 g/dL (12.2-16.2); Lymphocytes # 1.8 K/mm3 (0.7-4.5); Lymphocytes % 25.8 % (10-50); Mean Corpuscular Hemoglobin 32.6 pg (27.0-31.2); Mean Corpuscular Volume 95.8 fl (81-99); Mean Platelet Volume 8.5 fl (7.4-10.4); Monocytes # 0.3 K/mm3 (0.1-1.0); Monocytes % 4.2 % (1.7-9.3); Neutrophils # 4.6 K/mm3 (1.8-7.8); Neutrophils % 65.7 % (37.0-80.0); Platelet Count 238 K/mm3 (142-424); Red Blood Count 4.51 M/mm3 (4.20-5.40); Red Cell Distribution Width 13.5 % (11.5-17.5); White Blood Count 6.9 K/mm3 (4.8-10.8)
[2023-12-28] MEDS: LACTATED RINGERS 1000ML 1,000 ML 999 ML IV (10:21)
[2023-12-28] MEDS: ONDANSETRON 4MG/2ML VIAL 4 MG IV (10:22)
[2023-12-28] MEDS: ACETAMINOPHEN 1,000MG/100ML VIAL 1000 MG IV (10:23)
[2023-12-28] MEDS: KETOROLAC 30MG/ML VIAL 15 MG IV (10:23)
[2023-12-28 10:25] LABS: Chloride 116 mmol/L (98-107); Potassium 4.2 mmoL/L (3.5-5.1); Sodium 143 mmol/L (136-145)
[2023-12-28 10:27] LABS: Blood Urea Nitrogen 11 mg/dl (7-17); Creatinine Clearance Estimated 134 mL/min (50-200); Estimated Glomerular Filt Rate 96 ml/min (>60); GFR (African American) 116 ML/MIN (>60); HCG Qualitative, Serum Negative (Negative)
[2023-12-28 10:28] LABS: Alanine Aminotransferase 16 U/L (12-78); Albumin Level 4.4 g/dl (3.5-5.0); Albumin/Globulin Ratio 1.5 (1.1-1.8); Alkaline Phosphatase 38 U/L (38-126); Anion Gap 12.2 mEq/L (5-15); Aspartate Amino Transferase 21 U/L (14-36); Bilirubin,Total 0.5 mg/dl (0.2-1.3); Calcium 9.1 mg/dl (8.4-10.2); Carbon Dioxide 19 mmol/L (22.0-30.0); Globulin 2.9 g/dL (1.3-3.2); Glucose 90 mg/dl (74-100); Lipase 48 U/L (23-300); Total Protein,Serum 7.3 g/dl (6.3-8.2)
[2023-12-28 11:20] VITALS: BP 91/60; PULSE 64; O2SAT 99
[2023-12-28 12:33] LABS: Microscopic, Urine URINE MICROSCOPIC (MICROSCOPIC)
[2023-12-28 12:35] LABS: Appearance,Urine CLOUDY (Clear); Bilirubin,Urine Negative (Negative); Blood, Urine Negative (Negative); Color,Urine YELLOW (Yellow); Glucose,Urine (UA) Negative (Negative); Ketones,Urine Negative (Negative); Leukocyte Esterase,Urine Negative (Negative); Nitrate,Urine Negative (Negative); PH,Urine 8.5 (5.0-8.5); Protein,Urine Negative (Negative); Specific Gravity, Urine 1.015 (1.005-1.030); Urobilinogen,Urine 0.2 EU/dl (0.2)
[2023-12-28 12:45] LABS: Amorphous Sediment,Urine 1+ /lpf; Bacteria,Urine Trace /lpf
[2023-12-28] MEDS: FAMOTIDINE 20MG/2ML VIAL 20 MG IV (12:53)
[2023-12-28] MEDS: SODIUM CHLORIDE 0.9% 25ML BAG 25 ML IV (12:53)
[2023-12-28] MEDS: PROMETHAZINE HCL 25MG/ML 1ML VIAL 25 MG IV (12:53)
[2023-12-28 13:38] VITALS: BP 91/57; PULSE 67; RESP 14; TEMP 36.6; O2SAT 99
== END 2023-12-28 13:42 | disposition home or self-care (01) ==
PROVIDERS: Emergency Provider Emergency Medicine; PCP Family Medicine
DX: R51.9 Headache, unspecified (principal); R11.2 Nausea with vomiting, unspecified; R25.2 Cramp and spasm
CPT/HCPCS: 80053; 81001; 83690; 84703; 85025; 96361; 96374; 96375; 99284; J0131; J1885; J2405; J2550; J7120; S0028